=== PATIENT | female | born 1945 | race Caucasian/White ===

== ENCOUNTER → 2017-08-07 | Outpatient (CLI) | payer MEDICARE | LOC: M WUC 14:32 | DX: R91.8 Other nonspecific abnormal finding of lung field (principal); R05 Cough | CPT/HCPCS: 71046 ==

== ENCOUNTER → 2018-02-19 | Outpatient (REF) | payer MEDICARE | LOC: M LAB REF 13:18 | DX: K52.9 Noninfective gastroenteritis and colitis, unspecified (principal) | CPT/HCPCS: 87507 ==

== ENCOUNTER 2018-03-14 07:40 | Day surgery (SDC) | payer OTHER ==
[2018-03-14] MEDS: NS 1,000 ML IV (07:55)
[2018-03-14] MEDS ORDERED: LIDOCAINE 2% INJ 100 MG/5 ML SDV (FOR ANES.) As Ordered (09:48)
[2018-03-14] MEDS ORDERED: PROPOFOL 200 MG/20 ML VIAL As Ordered ×2 (09:48)
== END 2018-03-14 09:31 | disposition home or self-care (01) ==
LOC: M OPP 07:40
DX: K52.9 Noninfective gastroenteritis and colitis, unspecified (principal); A04.71 Enterocolitis due to Clostridium difficile, recurrent; D12.2 Benign neoplasm of ascending colon; K64.0 First degree hemorrhoids; K57.30 Diverticulosis of large intestine without perforation or abscess without bleeding; I10 Essential (primary) hypertension; E78.5 Hyperlipidemia, unspecified; E11.9 Type 2 diabetes mellitus without complications; M19.90 Unspecified osteoarthritis, unspecified site; J44.9 Chronic obstructive pulmonary disease, unspecified; Z87.891 Personal history of nicotine dependence; Z79.82 Long term (current) use of aspirin; Z79.899 Other long term (current) drug therapy; Z79.84 Long term (current) use of oral hypoglycemic drugs
CPT/HCPCS: 45385

== ENCOUNTER 2018-07-13 09:04 | Inpatient (IN) | payer OTHER ==
[2018-07-13 09:44] LABS: BASO % 0.7 % (0.0-1.0); EOS # 0.5 10^3/uL (0.0-0.50); EOS % 11.1 % (0.0-3.0); HEMOGLOBIN 13.2 g/dl (12.0-15.5); IMMATURE GRANULOCYTE % 0.5 % (0-3.0); LYMPH # 1.4 10^3/uL (1.5-4.5); LYMPH % 30.5 % (24.0-44.0); MEAN CORPUSCULAR HGB CONC 32.2 g/dl (32.0-36.5); MEAN CORPUSCULAR VOLUME 83.8 fl (80.0-96.0); MONO # 0.6 10^3/uL (0.0-0.8); MONO % 13.3 % (0.0-5.0); NEUTROPHILS % 43.9 % (36.0-66.0); PLATELET COUNT, AUTOMATED 268 10^3/uL (150-450); RED BLOOD COUNT 4.89 10^6/uL (4.00-5.40); RED CELL DISTRIBUTION WIDTH 13.6 % (11.5-14.5); WHITE BLOOD COUNT 4.4 10^3/uL (4.0-10.0)
[2018-07-13 09:55] LABS: INR 0.99; PROTHROMBIN TIME 13.2 SECONDS (12.1-14.4)
[2018-07-13 10:38] LABS: ALBUMIN 3.1 GM/DL (3.2-5.2); ALBUMIN/GLOBULIN RATIO 0.76 (1.00-1.93); ALKALINE PHOSPHATASE 68 U/L (45-117); ALT/SGPT 22 U/L (12-78); ANION GAP 9 MEQ/L (8-16); AST/SGOT 27 U/L (7-37); BILIRUBIN,DIRECT 0.2 MG/DL (0.0-0.2); BILIRUBIN,TOTAL 0.7 MG/DL (0.2-1.0); BLOOD UREA NITROGEN 10 MG/DL (7-18); CALCIUM LEVEL 8.6 MG/DL (8.8-10.2); CARBON DIOXIDE LEVEL 24 MEQ/L (21-32); CHLORIDE LEVEL 105 MEQ/L (98-107); CK-MB VALUE MASS < 1.0 NG/ML (<3.6); CPK CREATINE PHOSPHOKINASE 39 U/L (26-192); CREATININE FOR GFR 0.55 MG/DL (0.55-1.30); GLOMERULAR FILTRATION RATE > 60.0 (>39); GLUCOSE, FASTING 129 MG/DL (70-100); LIPASE 87 U/L (73-393); MB/CK RELATIVE INDEX 2.56 (< OR =4); NT-PRO BNP 56 PG/ML (<125); POTASSIUM SERUM 3.7 MEQ/L (3.5-5.1); SODIUM LEVEL 138 MEQ/L (136-145); THYROID STIMULATING HORMONE 0.779 uIU/ML (0.358-3.740); TOTAL PROTEIN 7.2 GM/DL (6.4-8.2); TROPONIN I < 0.02 NG/ML (< 0.10)
[2018-07-13] MEDS ORDERED: ISOVUE-370 76% 100ML VIAL (Q9967) As Ordered (11:00)
[2018-07-13 12:27] LABS: LACTIC ACID SEPSIS PROTOCOL 1.2 MMOL/L (0.4-2.0)
[2018-07-13] MEDS ORDERED: ONDANSETRON 4MG/2ML VIAL (J2405) IV (13:00)
[2018-07-13] MEDS: predniSONE 20 MG TAB PO (16:09)
[2018-07-13] MEDS: GABAPENTIN 300 MG CAP PO ×2 (16:09→20:01)
[2018-07-13] MEDS: IPRATROPIUM 0.5MG/ALBUTEROL 2.5MG INH SOL UD 3ML (DUONEB)(J7620) NEB (16:52)
[2018-07-13 19:37] LABS: BEDSIDE GLUCOSE 256 MG/DL (83-110)
[2018-07-13] MEDS ORDERED: GLUCOSE 4 GM CHEW TABLET PO (20:00)
[2018-07-13] MEDS ORDERED: DEXTROSE 50% 50 ML SYRINGE IV (20:00)
[2018-07-13] MEDS: ENOXAPARIN 40 MG/0.4 ML SYRINGE (J1650) SC (20:00)
[2018-07-13] MEDS ORDERED: GLUCAGON FOR INJ 1 MG VIAL (J1610) SC (20:00)
[2018-07-13] MEDS: HumaLOG INSULIN (NovoLOG) PER UNIT SC (20:01)
[2018-07-13] MEDS: FENOFIBRATE 145 MG TAB (TRICOR) PO (20:01)
[2018-07-14 05:57] LABS: BASO % 0.4 % (0.0-1.0); EOS # 0.1 10^3/uL (0.0-0.50); EOS % 2.4 % (0.0-3.0); HEMATOCRIT 40.4 % (36.0-47.0); HEMOGLOBIN 12.7 g/dl (12.0-15.5); IMMATURE GRANULOCYTE % 0.4 % (0-3.0); LYMPH # 1.3 10^3/uL (1.5-4.5); LYMPH % 28.4 % (24.0-44.0); MEAN CORPUSCULAR HGB CONC 31.4 g/dl (32.0-36.5); MEAN CORPUSCULAR VOLUME 85.8 fl (80.0-96.0); MONO # 0.8 10^3/uL (0.0-0.8); MONO % 16.4 % (0.0-5.0); NEUTROPHILS # 2.4 10^3/uL (1.8-7.7); PLATELET COUNT, AUTOMATED 269 10^3/uL (150-450); RED BLOOD COUNT 4.71 10^6/uL (4.00-5.40); RED CELL DISTRIBUTION WIDTH 13.6 % (11.5-14.5); WHITE BLOOD COUNT 4.6 10^3/uL (4.0-10.0)
[2018-07-14 06:18] LABS: BLOOD UREA NITROGEN 16 MG/DL (7-18); CARBON DIOXIDE LEVEL 27 MEQ/L (21-32); CHLORIDE LEVEL 106 MEQ/L (98-107); CREATININE FOR GFR 0.58 MG/DL (0.55-1.30); GLOMERULAR FILTRATION RATE > 60.0 (>39); GLUCOSE, FASTING 136 MG/DL (70-100); POTASSIUM SERUM 4.5 MEQ/L (3.5-5.1); SODIUM LEVEL 139 MEQ/L (136-145)
[2018-07-14 06:19] LABS: ANION GAP 6 MEQ/L (8-16); CALCIUM LEVEL 8.9 MG/DL (8.8-10.2)
[2018-07-14] MEDS: HumaLOG INSULIN (NovoLOG) PER UNIT SC ×4 (07:30→20:24)
[2018-07-14] MEDS: predniSONE 20 MG TAB PO (09:38)
[2018-07-14] MEDS: GABAPENTIN 300 MG CAP PO ×3 (09:38→20:24)
[2018-07-14] MEDS: PRAVASTATIN 20 MG TAB PO (09:38)
[2018-07-14] MEDS: LOSARTAN 25 MG TAB PO (09:40)
[2018-07-14] MEDS: FUROSEMIDE 20 MG/2 ML VIAL (J1940) IV (10:00)
[2018-07-14] MEDS: IPRATROPIUM 0.5MG/ALBUTEROL 2.5MG INH SOL UD 3ML (DUONEB)(J7620) NEB (10:01)
[2018-07-14 11:54] LABS: BEDSIDE GLUCOSE 195 MG/DL (83-110)
[2018-07-14] MEDS: ACETAMINOPHEN TAB 650MG DOSE (2X325MG) PO (13:16)
[2018-07-14 17:04] LABS: BEDSIDE GLUCOSE 200 MG/DL (83-110)
[2018-07-14 20:17] LABS: BEDSIDE GLUCOSE 225 MG/DL (83-110)
[2018-07-14] MEDS: ENOXAPARIN 40 MG/0.4 ML SYRINGE (J1650) SC (20:24)
[2018-07-14] MEDS: FENOFIBRATE 145 MG TAB (TRICOR) PO (20:24)
[2018-07-15 07:27] LABS: BEDSIDE GLUCOSE 121 MG/DL (83-110)
[2018-07-15] MEDS ORDERED: metFORMIN XR 500MG TAB *GLUCOPHAGE XR PO (08:00)
[2018-07-15] MEDS: PRAVASTATIN 20 MG TAB PO (08:05)
[2018-07-15] MEDS: GABAPENTIN 300 MG CAP PO ×3 (08:05→20:31)
[2018-07-15] MEDS: HumaLOG INSULIN (NovoLOG) PER UNIT SC ×4 (08:05→20:31)
[2018-07-15] MEDS: predniSONE 20 MG TAB PO ×2 (08:05→15:59)
[2018-07-15] MEDS: FUROSEMIDE 20 MG TAB PO (08:05)
[2018-07-15] MEDS: LOSARTAN 25 MG TAB PO (08:09)
[2018-07-15 09:26] LABS: HEMATOCRIT 42.4 % (36.0-47.0); HEMOGLOBIN 13.2 g/dl (12.0-15.5); MEAN CORPUSCULAR HEMOGLOBIN 26.3 pg (27.0-33.0); MEAN CORPUSCULAR HGB CONC 31.1 g/dl (32.0-36.5); MEAN CORPUSCULAR VOLUME 84.6 fl (80.0-96.0); PLATELET COUNT, AUTOMATED 288 10^3/uL (150-450); RED BLOOD COUNT 5.01 10^6/uL (4.00-5.40); RED CELL DISTRIBUTION WIDTH 13.8 % (11.5-14.5)
[2018-07-15 09:36] LABS: ANION GAP 8 MEQ/L (8-16); BLOOD UREA NITROGEN 25 MG/DL (7-18); CALCIUM LEVEL 9.1 MG/DL (8.8-10.2); CARBON DIOXIDE LEVEL 27 MEQ/L (21-32); CHLORIDE LEVEL 105 MEQ/L (98-107); CREATININE FOR GFR 0.53 MG/DL (0.55-1.30); GLOMERULAR FILTRATION RATE > 60.0 (>39); GLUCOSE, FASTING 120 MG/DL (70-100); NT-PRO BNP 46 PG/ML (<125); POTASSIUM SERUM 3.8 MEQ/L (3.5-5.1); SODIUM LEVEL 140 MEQ/L (136-145)
[2018-07-15 10:42] LABS: CK-MB VALUE MASS < 1.0 NG/ML (<3.6); CPK CREATINE PHOSPHOKINASE 27 U/L (26-192); TROPONIN I < 0.02 NG/ML (< 0.10)
[2018-07-15 12:25] LABS: IMMUNOGLOBULIN E < 3.6 IU/ML (<100)
[2018-07-15 13:16] LABS: BASO % 0.4 % (0.0-1.0); EOS # 0.1 10^3/uL (0.0-0.50); EOS % 1.3 % (0.0-3.0); HEMATOCRIT 42.9 % (36.0-47.0); HEMOGLOBIN 13.5 g/dl (12.0-15.5); IMMATURE GRANULOCYTE % 0.4 % (0-3.0); LYMPH # 0.9 10^3/uL (1.5-4.5); LYMPH % 16.7 % (24.0-44.0); MEAN CORPUSCULAR HEMOGLOBIN 26.7 pg (27.0-33.0); MEAN CORPUSCULAR HGB CONC 31.5 g/dl (32.0-36.5); MONO # 0.3 10^3/uL (0.0-0.8); MONO % 5.4 % (0.0-5.0); NEUTROPHILS % 75.8 % (36.0-66.0); PLATELET COUNT, AUTOMATED 297 10^3/uL (150-450); RED BLOOD COUNT 5.05 10^6/uL (4.00-5.40); RED CELL DISTRIBUTION WIDTH 13.6 % (11.5-14.5); WHITE BLOOD COUNT 5.2 10^3/uL (4.0-10.0)
[2018-07-15 13:36] LABS: ERYTHROCYTE SEDIMENTATION RATE 30 mm/hr (0-30)
[2018-07-15 13:38] LABS: C REACTIVE PROTEIN QUANTITATIV 2.24 MG/DL (0.00-0.30)
[2018-07-15] MEDS: ACETAMINOPHEN TAB 650MG DOSE (2X325MG) PO (15:59)
[2018-07-15 17:49] LABS: BEDSIDE GLUCOSE 217 MG/DL (83-110)
[2018-07-15 20:08] LABS: BEDSIDE GLUCOSE 255 MG/DL (83-110)
[2018-07-15] MEDS: FENOFIBRATE 145 MG TAB (TRICOR) PO (20:31)
[2018-07-15] MEDS: ENOXAPARIN 40 MG/0.4 ML SYRINGE (J1650) SC (20:31)
[2018-07-15] MEDS: IPRATROPIUM 0.5MG/ALBUTEROL 2.5MG INH SOL UD 3ML (DUONEB)(J7620) NEB (20:36)
[2018-07-16 06:40] LABS: HEMATOCRIT 40.5 % (36.0-47.0); HEMOGLOBIN 12.8 g/dl (12.0-15.5); MEAN CORPUSCULAR HEMOGLOBIN 26.6 pg (27.0-33.0); MEAN CORPUSCULAR HGB CONC 31.6 g/dl (32.0-36.5); PLATELET COUNT, AUTOMATED 313 10^3/uL (150-450); RED BLOOD COUNT 4.82 10^6/uL (4.00-5.40); RED CELL DISTRIBUTION WIDTH 13.5 % (11.5-14.5); WHITE BLOOD COUNT 5.4 10^3/uL (4.0-10.0)
[2018-07-16 06:54] LABS: ANION GAP 8 MEQ/L (8-16); BLOOD UREA NITROGEN 23 MG/DL (7-18); CALCIUM LEVEL 8.7 MG/DL (8.8-10.2); CARBON DIOXIDE LEVEL 27 MEQ/L (21-32); CHLORIDE LEVEL 107 MEQ/L (98-107); CREATININE FOR GFR 0.52 MG/DL (0.55-1.30); GLOMERULAR FILTRATION RATE > 60.0 (>39); GLUCOSE, FASTING 137 MG/DL (70-100); POTASSIUM SERUM 3.6 MEQ/L (3.5-5.1); SODIUM LEVEL 142 MEQ/L (136-145)
[2018-07-16] MEDS: ACETAMINOPHEN TAB 650MG DOSE (2X325MG) PO (07:50)
[2018-07-16] MEDS: PRAVASTATIN 20 MG TAB PO (07:50)
[2018-07-16] MEDS: LOSARTAN 25 MG TAB PO (07:52)
[2018-07-16] MEDS: GABAPENTIN 300 MG CAP PO (07:52)
[2018-07-16] MEDS: predniSONE 10 MG TAB PO (07:52)
[2018-07-16] MEDS: HumaLOG INSULIN (NovoLOG) PER UNIT SC ×2 (07:53→13:18)
[2018-07-19 14:00] LABS: BEDSIDE GLUCOSE 179 MG/DL (83-110)
[2018-07-19 14:00] LABS: BEDSIDE GLUCOSE 154 MG/DL (83-110)
== END 2018-07-16 13:56 | disposition home or self-care (01) | DRG 197 ==
LOC: M ED 09:04 → M ED INP 12:59 → M MSPAV 14:39
DX: J67.9 Hypersensitivity pneumonitis due to unspecified organic dust (principal); J44.1 Chronic obstructive pulmonary disease with (acute) exacerbation; E78.5 Hyperlipidemia, unspecified; E11.9 Type 2 diabetes mellitus without complications; I10 Essential (primary) hypertension; Z79.899 Other long term (current) drug therapy; Z79.82 Long term (current) use of aspirin; Z87.891 Personal history of nicotine dependence

== ENCOUNTER → 2018-08-17 | Outpatient (REF) | payer OTHER ==
[~2018-08-17] MED LIST: ASPI1CHW2 PO; BELS1TAB2 PO; BENT10CA PO; CALCTAB7 PO; CENT1CHW5 PO; FENO145T13 PO; FISH7.5C PO; GABA-843 PO; INVO100T PO; LECIGRA PO; LOSA25TA14 PO; METF500T4 PO; PRAV40TA2 PO; PRED10TA2 PO; REST0.057 OU; SERT-155 PO; SLOWTAB2 PO; SULF500T2 PO; VANC1CAP6 PO; VITA500T3 PO
[2018-08-22 00:11] LABS: ANCA-ATYPICAL <1:20 titer (Neg:<1:20); ANTI DOUBLE STRAND-DNA AB 1 IU/mL (0-9); ANTINUCLEAR ANTIBODIES DIRECT Negative (Negative); CYTOPLASMIC NEUTROP AB ANCA-C <1:20 titer (Neg:<1:20); PERINUCLEAR AB ANCA-P <1:20 titer (Neg:<1:20); RNP ANTIBODIES <0.2 AI (0.0-0.9); SJOGREN'S ANTI SS-A <0.2 AI (0.0-0.9); SJOGREN'S ANTI SS-B <0.2 AI (0.0-0.9); SMITH ANTIBODIES <0.2 AI (0.0-0.9)
== END ==
LOC: M LAB REF 16:23
PROVIDERS: ATTEND Internal Medicine Pulmonary Disease
DX: R91.8 Other nonspecific abnormal finding of lung field (principal)

== ENCOUNTER → 2018-09-14 | Outpatient (CLI) | payer MEDICARE ==
--- NOTE | 2018-09-14 15:53 | REP ---
CT of the chest without IV contrast: Comparison is the chest CT dated 07/13/2018. The bilateral infiltrates identified on the previous study have resolved. There are no infiltrates or pleural effusions on the current study. There are no nodules or masses. There is no mediastinal or axillary lymph node enlargement. The study is insensitive for hilar lymph node enlargement in the absence of IV contrast. There is occasional coronary artery atheromatous calcification. Thoracic aorta is unremarkable. Cardiac size is normal. In the upper abdomen there is a cortical defect in the upper pole right kidney compatible with focal renal cortical infarct as previously. The visualized upper abdominal contents are otherwise unremarkable. Impression: Essentially negative CT study of the chest. The bilateral infiltrates identified on the comparison study have resolved. 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 Electronically Signed by Darrell Montesinos MD 09/14/2018 03:44 P
== END ==
LOC: M RAD 10:17
PROVIDERS: ATTEND Internal Medicine Pulmonary Disease
DX: R91.1 Solitary pulmonary nodule (principal)

== ENCOUNTER 2019-01-02 10:07 | Emergency (ER) | payer MEDICARE ==
[~2019-01-02] VITALS: Ht 170.2 cm; Wt 86.8 kg
[2019-01-02] MEDS ORDERED: VENTAER INH (10:14)
[2019-01-02] MEDS ORDERED: BREO1INH INH (10:14)
[2019-01-02] MEDS ORDERED: JARD1TAB3 PO (10:14)
--- NOTE | 2019-01-02 10:37 | REP ---
CT Head without contrast HISTORY: Infarction COMPARISON: 03/21/2015 Areas of decreased attenuation are present in the periventricular white matter. This represents small-vessel ischemic disease. There is no intraparenchymal hemorrhage, acute infarct, mass or midline shift. The ventricular system and cortical sulci are dilated consistent with minimal volume loss. There is no extra cerebral collection. There is no fracture. The visualized sinuses are clear. IMPRESSION: 1. Small-vessel ischemic disease. 2. Minimal volume loss. Electronically Signed by Maximo Keene MD 01/02/2019 10:28 A
--- NOTE | 2019-01-02 10:59 | REP ---
PORTABLE CHEST: AP portable view of the chest is performed and compared to prior studies most recently 07/13/2018. There is mild bibasilar fibroatelectatic change without evidence of acute infiltrate. The heart is normal in size. There is mild calcification of the thoracic aorta. Mediastinal silhouette is unchanged. IMPRESSION: Mild bibasilar fibroatelectatic change. Electronically Signed by Darrell Garcia MD 01/02/2019 04:50 P
[2019-01-02 11:15] LABS: BASO % 0.4 % (0.0-1.0); EOS # 0.1 10^3/uL (0.0-0.50); EOS % 2.1 % (0.0-3.0); HEMATOCRIT 42.4 % (36.0-47.0); HEMOGLOBIN 13.6 g/dl (12.0-15.5); LYMPH # 1.7 10^3/uL (1.5-4.5); LYMPH % 24.9 % (24.0-44.0); MEAN CORPUSCULAR HEMOGLOBIN 28.3 pg (27.0-33.0); MEAN CORPUSCULAR HGB CONC 32.1 g/dl (32.0-36.5); MEAN CORPUSCULAR VOLUME 88.3 fl (80.0-96.0); MONO # 0.6 10^3/uL (0.0-0.8); MONO % 8.2 % (0.0-5.0); NEUTROPHILS # 4.3 10^3/uL (1.8-7.7); NEUTROPHILS % 63.7 % (36.0-66.0); PLATELET COUNT, AUTOMATED 229 10^3/uL (150-450); WHITE BLOOD COUNT 6.7 10^3/uL (4.0-10.0)
[2019-01-02 11:25] LABS: INR 0.91; PROTHROMBIN TIME 12.3 SECONDS (12.1-14.4)
[2019-01-02 11:26] LABS: PARTIAL THROMBOPLASTIN TIME 26.1 SECONDS (25.4-37.6)
[2019-01-02 11:43] LABS: BLOOD UREA NITROGEN 15 MG/DL (7-18); CALCIUM LEVEL 9.1 MG/DL (8.8-10.2); CARBON DIOXIDE LEVEL 26 MEQ/L (21-32); CHLORIDE LEVEL 109 MEQ/L (98-107); CK-MB VALUE MASS < 1.0 NG/ML (<3.6); CPK CREATINE PHOSPHOKINASE 42 U/L (26-192); CREATININE FOR GFR 0.61 MG/DL (0.55-1.30); GLOMERULAR FILTRATION RATE > 60.0 (>39); GLUCOSE, FASTING 114 MG/DL (70-100); MB/CK RELATIVE INDEX 2.38 (< OR =4); POTASSIUM SERUM 3.7 MEQ/L (3.5-5.1); SODIUM LEVEL 143 MEQ/L (136-145); TROPONIN I < 0.02 NG/ML (< 0.10)
[2019-01-02] MEDS ORDERED: MECLIZINE 25 MG TABLET PO ONE (12:00)
[2019-01-02] MEDS ORDERED: OMEP-218 (14:52)
[2019-01-02] MEDS ORDERED: LOSARTAN 25 MG TAB PO ONE (15:15)
[2019-01-02 15:33] VITALS: BP 184/87
--- NOTE | 2019-01-02 16:21 | ECGEPIP ---
[facility] - ED Test Date: 2019-01-02 Pat Name: PADMINI WALKER Department: Room: - Gender: Female Wet [employer] Supervisor: ernie : 1945 Requested By: Oanh Syed Order Number: [id number] Reading MD: Oanh Syed Measurements Intervals [place] Rate: 56 P: 51 OK: 169 QRS: QRSD: 85 T: 23 QT: 433 QTc: 420 Interpretive Statements SINUS BRADYCARDIA SIMILAR 07/15/18 Electronically Signed on 01-02-2019 16:21:36 EDT by Oanh Syed
[2019-01-02] MEDS ORDERED: MECL-68 PO (17:49)
--- NOTE | 2019-01-02 19:17 | REP ---
MRA Brain without contrast History: Vertigo 3-D [id number] MR angiography was performed at the level of the [place]. There is no aneurysm or arteriovenous malformation. Mild atherosclerotic disease involves the cavernous internal carotid arteries and right middle cerebral artery trifurcation. Major intracranial vessels are patent. The right vertebral artery is dominant. Impression 1. There is no aneurysm or arteriovenous malformation 2. Atherosclerotic disease as described above. Electronically Signed by Maximo Keene MD 01/02/2019 07:08 P
--- NOTE | 2019-01-02 19:20 | REP ---
MR Brain without contrast HISTORY: Vertigo COMPARISON : None Scattered punctate areas of increased signal intensity on T2-weighted images are present in the periventricular and subcortical white matter. This represents small-vessel ischemic disease. There is no intraparenchymal hemorrhage, infarct, mass or midline shift. The ventricular system and cortical sulci are dilated consistent with minimal volume loss. There is no extra cerebral collection. The sinuses are clear. IMPRESSION: 1. Minimal small vessel ischemic disease. 2. Minimal volume loss. Electronically Signed by Maximo Keene MD 01/02/2019 07:11 P
[2019-01-02 19:45] VITALS: BP 136/59
== END 2019-01-02 20:18 | disposition home or self-care (01) ==
LOC: M ED 10:07
DX: R42 Dizziness and giddiness (principal); R00.1 Bradycardia, unspecified; E11.9 Type 2 diabetes mellitus without complications; G62.9 Polyneuropathy, unspecified; I10 Essential (primary) hypertension; E78.5 Hyperlipidemia, unspecified; Z87.891 Personal history of nicotine dependence; I67.2 Cerebral atherosclerosis; J98.11 Atelectasis; I67.82 Cerebral ischemia; Z79.82 Long term (current) use of aspirin; Z79.84 Long term (current) use of oral hypoglycemic drugs; Z79.899 Other long term (current) drug therapy

== ENCOUNTER 2019-02-18 09:55 | Emergency (ER) | payer MEDICARE ==
[~2019-02-18] VITALS: Ht 170.2 cm; Wt 84.5 kg
[~2019-02-18 09:55] MED LIST changes: +BREO1INH INH; +CYAN500T8 PO; +JARD1TAB3 PO; +MECL-68 PO; +OMEP-218; +VENTAER INH; -VITA500T3 PO
--- NOTE | 2019-02-18 11:00 | REP ---
Clinical: Pain. Fall. Technique: AP, lateral views of the left tibia / fibula. Findings: There is a nondisplaced poorly defined fracture involving the ankle and likely involving the posterior malleolus or distal fibula with surrounding soft tissue swelling. There also appears to be an acute oblique fracture involving the proximal fibular shaft. Impression: Incompletely evaluated ankle fracture with soft tissue swelling Oblique fracture of the proximal fibular shaft. Electronically Signed by Jacob Licea MD 02/18/2019 10:51 A
--- NOTE | 2019-02-18 11:02 | REP ---
Clinical: Trauma. Fall. Technique: AP, lateral, bilateral oblique views of the left ankle. Findings: There appears to be fracture of the posterior malleolus and tip of the medial malleolus. A subtle injury to the distal fibula cannot be excluded as well. Generalized soft tissue swelling noted. Impression: Acute fractures of the posterior malleolus and tip of the medial malleolus with surrounding soft tissue swelling. Electronically Signed by Jacob Licea MD 02/18/2019 10:53 A
[2019-02-18] MEDS ORDERED: ADACEL/BOOSTRIX VACCINE (DIPHTH/PERTUSS/ACELL/TETANUS)0.5ML SYR (90715) IM ONE (11:30)
[2019-02-18 13:25] VITALS: BP 148/87
== END 2019-02-18 13:27 | disposition home or self-care (01) ==
LOC: M ED 09:55 → EDBD 09:55 → M ED 13:27
DX: S82.432A Displaced oblique fracture of shaft of left fibula, initial encounter for closed fracture (principal); S82.52XA Displaced fracture of medial malleolus of left tibia, initial encounter for closed fracture; S90.512A Abrasion, left ankle, initial encounter; W01.0XXA Fall on same level from slipping, tripping and stumbling without subsequent striking against object, initial encounter; Y92.830 Public park as the place of occurrence of the external cause; I11.0 Hypertensive heart disease with heart failure; E11.40 Type 2 diabetes mellitus with diabetic neuropathy, unspecified; I50.9 Heart failure, unspecified; J44.9 Chronic obstructive pulmonary disease, unspecified; F33.9 Major depressive disorder, recurrent, unspecified; K21.9 Gastro-esophageal reflux disease without esophagitis; F41.9 Anxiety disorder, unspecified; M19.90 Unspecified osteoarthritis, unspecified site; Z79.899 Other long term (current) drug therapy; Z79.84 Long term (current) use of oral hypoglycemic drugs; Z79.82 Long term (current) use of aspirin; Z87.891 Personal history of nicotine dependence

== ENCOUNTER → 2019-02-27 | Outpatient (CLI) | payer MEDICARE ==
[~2019-02-27] MED LIST changes: +ASPI81TA85 PO; -FENO145T13 PO; +FENO145T7 PO; +KEFL500C17 PO; -MECL-68 PO; +MECL1TAB31 PO; +METF-791 PO; -METF500T4 PO; +OXYC-517 PO; -SERT-155 PO; +SERT50TA29 PO
--- NOTE | 2019-02-27 17:07 | REP ---
CT LEFT ANKLE: CT left ankle was performed in the axial plane. Sagittal and coronal reconstruction images are performed. There is a somewhat comminuted fracture of the distal end of the tibia. This extends into the tibiotalar joint. This predominately involves the posterior malleolus. Two major fracture fragments at that location are not significantly displaced. There is a thin linear fracture fragment at the medial margin of the tibia at that level which is slightly displaced medially. There is a fragment displaced laterally at the lateral margin of the distal tibia, located anterior to the distal fibula. The distal fibula itself is intact. There is mild extension into the medial malleolus. Approximately three small rounded ossific densities at the tip of the medial malleolus appear to represent old avulsion fractures. The talus and calcaneus appear intact. Two tiny accessory ossicles are seen posterior to the navicular bone. Small accessory ossicle is seen adjacent to the cuboid bone. Superficial soft-tissue edema is noted. Electronically Signed by Darrell Garcia MD 02/28/2019 07:53 A
== END ==
LOC: M RAD 13:11
PROVIDERS: ATTEND Orthopaedic Surgery
DX: S82.392A Other fracture of lower end of left tibia, initial encounter for closed fracture (principal)

== ENCOUNTER 2019-03-04 09:52 | Day surgery (SDC) | payer MEDICARE ==
[2019-03-04] VITALS (7 sets, daily range): BP systolic 99–147; BP diastolic 60–93; O2SAT 96
[~2019-03-04] VITALS: Ht 171.4 cm; Wt 78.2 kg
[~2019-03-04 09:52] MED LIST changes: -ASPI81TA85 PO; +FENO145T13 PO; -FENO145T7 PO; -KEFL500C17 PO; +MECL-68 PO; -MECL1TAB31 PO; -METF-791 PO; +METF500T4 PO; -OXYC-517 PO; +SERT-155 PO; -SERT50TA29 PO
[2019-03-04] MEDS ORDERED: dexameTHASONE 4 MG/ML 1ML VIAL (J1100) As Ordered ONE (10:24)
[2019-03-04] MEDS ORDERED: KETOROLAC 60 MG/2 ML VIAL (J1885) As Ordered ONE (10:24)
[2019-03-04] MEDS ORDERED: ONDANSETRON 4MG/2ML VIAL (J2405) As Ordered ONE (10:24)
[2019-03-04] MEDS ORDERED: PROPOFOL 200 MG/20 ML VIAL As Ordered ONE (10:26)
[2019-03-04] MEDS ORDERED: LIDOCAINE 2% INJ 100 MG/5 ML SDV (FOR ANES.) As Ordered ONE (10:26)
[2019-03-04] MEDS ORDERED: fentaNYL 250 MCG/5 ML INJECTION (J3010) As Ordered ONE (10:29)
[2019-03-04] MEDS ORDERED: MIDAZOLAM INJ 2 MG/2 ML VIAL (J2250) As Ordered ONE ×2 (10:30→12:08)
[2019-03-04] MEDS ORDERED: LR 1,000 ML IV ONE (11:00)
[2019-03-04] MEDS ORDERED: ROCURONIUM BROMIDE 50 MG/5 ML VIAL As Ordered ONE ×2 (11:34→13:37)
[2019-03-04] MEDS ORDERED: fentaNYL 100 MCG/2 ML INJECTION (J3010) As Ordered ONE (12:08)
[2019-03-04] MEDS: MIDAZOLAM INJ 2 MG/2 ML VIAL (J2250) IV SCH ×2 (12:28→12:40)
[2019-03-04] MEDS: fentaNYL 100 MCG/2 ML INJECTION (J3010) IV SCH ×2 (12:28→12:40)
[2019-03-04] MEDS ORDERED: BUPIVACAINE HCL 0.5% 30 ML VIAL As Ordered ONE (13:03)
[2019-03-04] MEDS ORDERED: ePHEDrine SULFATE 25 MG/5 ML(5MG/ML) SYRINGE As Ordered ONE (13:36)
[2019-03-04] MEDS ORDERED: SUGAMMADEX SODIUM 500 MG/5 ML VIAL (BRIDION) As Ordered ONE (13:56)
[2019-03-04] MEDS: ACETAMINOPHEN 500 MG TAB PO SCH ×2 (14:00→21:56)
[2019-03-04] MEDS ORDERED: METOCLOPRAMIDE INJ 10MG/2ML VIAL (J2765) IV PRN (16:30)
[2019-03-04] MEDS ORDERED: ONDANSETRON 4MG/2ML VIAL (J2405) IV PRN (16:30)
[2019-03-04] MEDS ORDERED: LR 1,000 ML IV SCH ×2 (16:30)
[2019-03-04] MEDS: PERCOCET 5MG/325MG TAB PO PRN ×2 (16:32→17:00)
[2019-03-04] MEDS: fentaNYL 100 MCG/2 ML INJECTION (J3010) IV PRN ×4 (16:36→16:55)
--- NOTE | 2019-03-04 16:53 | REP ---
Left ankle series: Intraoperative films: 13 views. History: Fracture left ankle. 2 minutes 31 seconds of fluoroscopy time is reported. Findings: A sequence of 13 last image hold fluoroscopically obtained spot radiographs of the left ankle document open reduction internal fixation procedure or left distal tibial fracture. Electronically Signed by Fernando Mitchell MD 03/04/2019 04:42 P
[2019-03-04] MEDS: traMADol 50 MG TAB PO PRN (20:45)
[2019-03-05 02:00] VITALS: BP 143/82
[2019-03-05] MEDS: traMADol 50 MG TAB PO PRN ×2 (02:31→08:44)
[2019-03-05] MEDS: ACETAMINOPHEN 500 MG TAB PO SCH ×2 (05:06→13:10)
[2019-03-05 06:00] VITALS: BP 141/80
[2019-03-05] MEDS ORDERED: ASPI81TA85 PO (06:14)
[2019-03-05] MEDS ORDERED: KEFL500C17 PO (06:14)
[2019-03-05] MEDS ORDERED: OXYC-517 PO (06:14)
--- NOTE | 2019-03-05 08:05 | REP ---
Portable left ankle series: Three views: History: Postop. Comparison study: February 18, 2019. Three the views obtained portably through overlying cast material document screw plate fixation of the posterior aspect of the distal tibia anatomically aligned. Ankle mortise appears intact. Electronically Signed by Fernando Mitchell MD 03/05/2019 07:20 P
[2019-03-05] MEDS: CEPHALEXIN 500 MG CAP PO SCH ×2 (08:44→13:10)
[2019-03-05] MEDS ORDERED: ASPIRIN 81 MG ENTERIC TAB PO SCH (09:00)
[2019-03-05 10:00] VITALS: BP 142/79
--- NOTE | 2019-03-05 17:23 | RO ---
DATE OF PROCEDURE: 03/04/2019 PREPROCEDURE DIAGNOSIS: Left posterior malleolar fracture. POSTPROCEDURE DIAGNOSIS: Left posterior malleolar fracture. PROCEDURE: Open reduction internal fixation left posterior malleolus. SURGEON: Lindsey Mccall MD CREATIVE ART DIRECTOR: MILDRED Hedrick ANESTHESIA: General endotracheal. ESTIMATED BLOOD LOSS: 25 mL. COMPLICATIONS: None. IMPLANTS: Synthes four-hole one-third tubular plate and associated 3.5 mm screws. One single 3.5 mm screw outside the plate. COMPLICATIONS: None. CONDITION: Stable to recovery. INDICATIONS: Diana Albarran is a 73-year-old female who sustained a large posterior malleolar fracture. Risks and benefits of surgery were discussed with the patient in detail, and she elected for surgical intervention. Risks include but are not limited to infection, damage to nerves and blood vessels, continued pain and stiffness, need for additional procedures. Informed consent was obtained in the office. DESCRIPTION OF PROCEDURE: The patient was met in the preoperative holding area where the left lower extremity was marked as the correct operative site. Anesthesia did attempt a nerve block; however, the patient did have a small sore from her cast over the posterior aspect of her knee, and they were unable to do the block. She was taken to the operating room where general anesthesia was performed. The patient was placed in the prone position. All bony prominences were well padded. A well-padded tourniquet was placed on the left upper thigh. The left lower extremity was then prepped and draped in the normal sterile fashion after chlorhexidine pre-wash was done. Following this, an official time-out was held with the correct patient, operative site, and operative procedure were verified. At this point, the leg was exsanguinated and tourniquet was inflated to 250 mmHg. It was up for 113 minutes. Posterolateral approach to the ankle was utilized. Incision was made midway between the fibula and Achilles. The sural nerve was immediately available, and this was carefully retracted medially throughout the entirety of the case. The interval between the peroneal tendons and Achilles was accessed. Following this, the flexor hallucis longus (FHL) was gently retracted off the posterior aspect of the posterior malleolus. The fracture was identified. It was cleaned of hematoma and debris. It was then reduced using a ball spike. It was held in place with two 0.062 K-wires. A 3.5 mm lag screw was placed across the fracture site. C-arm was used and radiographs were confirmed on AP, lateral and mortise views, satisfactory alignment. Following this, a four-hole plate was selected. It was secured in an antiglide-like fashion. Final x-rays were performed and alignment and hardware was found to be satisfactory. There was good compression of the fracture site. Again, this was satisfactory on all AP, lateral and mortise views. The patient was placed into a well-padded splint. She was then extubated and transferred to the recovery room in stable condition. PLAN: The patient will be non-weightbearing for 6 weeks. I would like her to come back in 1 week for a wound check and cast placement. She will be on 24 hours of IV perioperative antibiotics and aspirin for deep vein thrombosis (DVT) prophylaxis. All her questions were answered, and she was in agreement with this plan.
== END 2019-03-05 15:10 | disposition home or self-care (01) ==
LOC: M SDC 09:52 → M MS5PR 17:30 → M SDC 03-05 15:10
PROVIDERS: ATTEND Orthopaedic Surgery
DX: S82.62XA Displaced fracture of lateral malleolus of left fibula, initial encounter for closed fracture (principal); W19.XXXA Unspecified fall, initial encounter; Y92.89 Other specified places as the place of occurrence of the external cause; Y93.9 Activity, unspecified; Y99.9 Unspecified external cause status; E11.40 Type 2 diabetes mellitus with diabetic neuropathy, unspecified; K52.839 Microscopic colitis, unspecified; E78.5 Hyperlipidemia, unspecified; F34.1 Dysthymic disorder; Z79.51 Long term (current) use of inhaled steroids; Z79.84 Long term (current) use of oral hypoglycemic drugs; K21.9 Gastro-esophageal reflux disease without esophagitis; J44.9 Chronic obstructive pulmonary disease, unspecified; Z87.891 Personal history of nicotine dependence; Z79.82 Long term (current) use of aspirin; Z79.899 Other long term (current) drug therapy; I10 Essential (primary) hypertension; K76.0 Fatty (change of) liver, not elsewhere classified; Z91.040 Latex allergy status; E83.42 Hypomagnesemia
CPT/HCPCS: 27769; 73610; 76000; 96365; 96366; 97161; 97530; C1713; J0690; J1100; J1885; J2250; J2405; J3010

== ENCOUNTER 2019-04-18 07:21 | Outpatient (RCR) | payer MEDICARE ==
[~2019-04-18 07:21] MED LIST changes: +ASPI81TA85 PO; +KEFL500C17 PO; +METF-791 PO; -METF500T4 PO; +OXYC-517 PO
== END 2019-04-22 | disposition home or self-care (01) ==
LOC: M PT 07:21
DX: S82.62XD Displaced fracture of lateral malleolus of left fibula, subsequent encounter for closed fracture with routine healing (principal)

== ENCOUNTER → 2019-05-08 | Outpatient (REF) | payer MEDICARE ==
[~2019-05-08] MED LIST changes: -SERT-155 PO; +SERT50TA29 PO
[2019-05-08 14:04] LABS: TOTAL PROTEIN 7.4 GM/DL (6.4-8.2)
[2019-05-08 14:13] LABS: VITAMIN B12 LEVEL 434 PG/ML (247-911)
[2019-05-08 14:14] LABS: FOLATE 10.8 NG/ML (>5.4)
[2019-05-09 12:32] LABS: ALBUMIN 4.11 GM/DL (3.29-5.55); ALBUMIN % 55.5 % (55.8-66.1); ALPHA-1-GLOBULIN % 4.8 % (2.9-4.9); ALPHA-1-GLOBULINS 0.36 GM/DL (0.17-0.41); ALPHA-2-GLOBULINS 0.74 GM/DL (0.42-0.99); BETA-1-GLOBULINS 0.63 GM/DL (0.28-0.60); BETA-1-GLOBULINS % 8.5 % (4.7-7.2); BETA-2-GLOBULINS % 6.8 % (3.2-6.5); GAMMA GLOBULIN % 14.4 % (11.1-18.8); GAMMA GLOBULINS 1.07 GM/DL (0.65-1.58)
[2019-05-12 08:06] LABS: CERULOPLASMIN 28.1 mg/dL (19.0-39.0); VITAMIN B1 LEVEL WHOLE BLOOD 142.6 nmol/L (66.5-200.0); VITAMIN B6,PYRIDOXAL PHOSPHATE 4.8 ug/L (2.0-32.8); VITAMIN E(ALPHA TOCOPHEROL) 16.5 mg/L (9.0-29.0); VITAMIN E(GAMMA TOCOPHEROL) 3.7 mg/L (0.5-4.9)
== END ==
LOC: M LABNEURO 11:22
PROVIDERS: ATTEND Psychiatry & Neurology Neurology
DX: G90.09 Other idiopathic peripheral autonomic neuropathy (principal); D51.9 Vitamin B12 deficiency anemia, unspecified; E51.9 Thiamine deficiency, unspecified

== ENCOUNTER 2019-05-16 08:33 | Outpatient (RCR) | payer MEDICARE | END 2019-05-23 | LOC: M PT 08:33 | DX: S82.62XD Displaced fracture of lateral malleolus of left fibula, subsequent encounter for closed fracture with routine healing (principal) ==

== ENCOUNTER 2019-06-19 08:41 | Outpatient (RCR) | payer MEDICARE | END 2019-06-22 | LOC: M PT 08:41 | DX: Z47.89 Encounter for other orthopedic aftercare (principal) ==

== ENCOUNTER 2019-07-15 07:47 | Outpatient (RCR) | payer MEDICARE | END 2019-07-23 | LOC: M PT 07:47 | DX: Z47.89 Encounter for other orthopedic aftercare (principal) ==

== ENCOUNTER → 2019-08-08 | Outpatient (CLI) | payer MEDICARE ==
[~2019-08-08] MED LIST changes: -FENO145T13 PO; +FENO145T7 PO; -MECL-68 PO; +MECL1TAB31 PO
[2019-08-14 00:06] LABS: ASPERGILLUS FLAVUS ABY Negative (Neg:<1:1); ASPERGILLUS FUMIGATUS ABY Negative (Neg:<1:1); ASPERGILLUS NIGER ABY Negative (Neg:<1:1); BLASTOMYCES ANTIBODY LEVEL Negative (Neg:<1:1); CHLAMYDIA PNEUMONIAE IgM < 1:10 (< 1:10); CHLAMYDIA PSITTACI IgM < 1:10 (< 1:10); CHLAMYDIA TRACHOMATIS IgM < 1:10 (< 1:10); CRYPTOCOCCUS ANTIGEN SER Negative (Negative); HISTOPLASMOSIS ANTIBODY Negative (Neg:<1:1); L. PNEUMOPHILA (1,3,4,5,6,8) <0.91 OD ratio (0.00-0.90)
== END ==
LOC: M PLALAB 08:45
PROVIDERS: ATTEND Internal Medicine Pulmonary Disease
DX: J44.9 Chronic obstructive pulmonary disease, unspecified (principal)

== ENCOUNTER → 2019-08-23 | Outpatient (RCR) | payer MEDICARE | LOC: M PT 08-16 10:26 | PROVIDERS: ATTEND Physician Assistant Medical | DX: M76.72 Peroneal tendinitis, left leg (principal); M72.2 Plantar fascial fibromatosis; M76.62 Achilles tendinitis, left leg ==

== ENCOUNTER 2019-09-13 08:45 | Outpatient (RCR) | payer MEDICARE | END 2019-09-21 | LOC: M PT 08:45 | PROVIDERS: ATTEND Physician Assistant Medical | DX: M76.62 Achilles tendinitis, left leg (principal); M72.2 Plantar fascial fibromatosis; M76.72 Peroneal tendinitis, left leg ==

== ENCOUNTER 2019-09-20 08:00 | Outpatient (RCR) | payer MEDICARE | END 2019-09-21 | disposition home or self-care (01) | LOC: M PT 08:00 | PROVIDERS: ATTEND Physician Assistant Medical | DX: Z47.89 Encounter for other orthopedic aftercare (principal); M25.812 Other specified joint disorders, left shoulder ==

== ENCOUNTER 2019-10-18 09:30 | Outpatient (RCR) | payer MEDICARE | END 2019-10-22 | LOC: M PT 09:30 | PROVIDERS: ATTEND Physician Assistant Medical | DX: Z47.89 Encounter for other orthopedic aftercare (principal); M25.812 Other specified joint disorders, left shoulder ==

== ENCOUNTER → 2019-11-18 | Outpatient (REF) | payer MEDICARE ==
[2019-11-18 15:55] LABS: CREATININE, URINE 67.2 MG/DL; MALB URINE SIEMENS < 5.0 MG/L; MAU/CREAT RATIO 7.4 MCG/MG (0.0-30.0)
== END ==
LOC: M LAB REF 14:55
PROVIDERS: ATTEND Nurse Practitioner Family
DX: E11.9 Type 2 diabetes mellitus without complications (principal)

== ENCOUNTER → 2020-01-21 | Outpatient (CLI) | payer MEDICARE ==
[~2020-01-21] MED LIST changes: -METF-791 PO; +METF-838 PO
--- NOTE | 2020-01-21 08:24 | REP ---
Clinical: Follow up abnormal lung findings. Comparison: 08/02/2019. Technique: Axial noncontrast images from the thoracic inlet to the upper abdomen with coronal and sagittal re-formations. Findings: Mild emphysematous changes along with mild bronchiectasis, minimal scattered scarring and chronic interstitial changes are noted. Previously identified patchy infiltrates have completely resolved. No obvious acute consolidation, significant nodule or mass lesion appreciated. No effusion. No pneumothorax. No significant adenopathy. Stable atherosclerotic changes to the thoracic aorta and coronary arteries again noted. Musculoskeletal structures demonstrate age-related changes without acute process. Impression: Chronic-appearing changes. Previously noted patchy infiltrates have resolved. No acute mediastinal or pleuroparenchymal process noted. Electronically Signed by Jacob Licea MD 01/21/2020 08:16 A
== END ==
LOC: M RAD 06:52
PROVIDERS: ATTEND Internal Medicine Pulmonary Disease
DX: R91.8 Other nonspecific abnormal finding of lung field (principal)

== ENCOUNTER → 2020-07-27 | Outpatient (CLI) | payer SELFPAY ==
[~2020-07-27] MED LIST changes: -ASPI81TA85 PO; +ASPI81TA86 PO; +CALC-211 PO; -CALCTAB7 PO; +CYAN500T14 PO; -CYAN500T8 PO
== END ==
LOC: M LABSMTC 10:54
PROVIDERS: ATTEND Pediatrics
DX: Z20.822 Contact with and (suspected) exposure to COVID-19 (principal)

== ENCOUNTER → 2020-08-14 | Outpatient (CLI) | payer MEDICARE ==
[~2020-08-14] MED LIST changes: +GABA-282 PO; -GABA-843 PO
[2020-08-14 11:59] LABS: BLOOD UREA NITROGEN 17 MG/DL (7-18); CREATININE FOR GFR 0.67 MG/DL (0.55-1.30); GLOMERULAR FILTRATION RATE > 60.0 (>39)
== END ==
LOC: M PLALAB 09:27
PROVIDERS: ATTEND Physician Assistant Surgical
DX: M19.012 Primary osteoarthritis, left shoulder (principal)

== ENCOUNTER → 2020-10-15 | Outpatient (CLI) | payer MEDICARE ==
[~2020-10-15] MED LIST changes: +ISOVUE-300 61% 50ML VIAL As Ordered ONE; +LIDOCAINE 1% MDV 20ML VIAL As Ordered ONE; +methylPREDNISolone SUSP 40MG/ML 1ML VIAL (DEPO MEDROL) As Ordered ONE
--- NOTE | 2020-10-15 18:54 | REP ---
INDICATION: LT SHOULDER RCT/RUPT W/ PAIN. COMPARISON: None TECHNIQUE: The procedure was performed by RAMA Barber, under the direct supervision of Dr. Garcia. The benefits and risks of the procedure were explained to the patient, and an informed consent was obtained. Directly prior to the start of the procedure, a formal time-out was completed in the procedure room. The left glenohumeral joint space was localized using fluoroscopic guidance. The skin was prepped and draped in a sterile fashion. Approximately 5 mL of 1% Lidocaine 10 mg/ml was used as a local anesthetic. Using fluoroscopic guidance, a #22 gauge spinal needle was inserted and advanced into the left glenohumeral joint space. Approximately 1 mL of Isovue 300 was injected to verify placement. Seven mL of a solution containing 5 mL 1% lidocaine 10 mg/ml and 2 mL Depo-Medrol 40 milligrams/milliliter was injected into the joint space. The needle was removed and hemostasis was achieved. FINDINGS: The patient tolerated the procedure well and there were no immediate complications. IMPRESSION: 1. Fluoroscopic guided right glenohumeral intra-articular pain injection. 0.1 minutes of fluoroscopy time was utilized for this procedure. Some fluoroscopic images are performed with last image hold technology. These images require no additional radiation. <Electronically signed by Emma Barrera > 10/15/20 1416 <Electronically signed by Darrell Garcia > 10/15/20 0098
== END ==
LOC: M RADPRO 10:58
PROVIDERS: ATTEND Physician Assistant Surgical
DX: M75.102 Unspecified rotator cuff tear or rupture of left shoulder, not specified as traumatic (principal)
CPT/HCPCS: 20610; 77002; J1030; Q9967

== ENCOUNTER → 2020-11-05 | Outpatient (REF) | payer MEDICARE ==
[~2020-11-05] MED LIST changes: -ISOVUE-300 61% 50ML VIAL As Ordered ONE; -LIDOCAINE 1% MDV 20ML VIAL As Ordered ONE; -methylPREDNISolone SUSP 40MG/ML 1ML VIAL (DEPO MEDROL) As Ordered ONE
[2020-11-05 16:05] LABS: CREATININE, URINE 54.1 MG/DL; MALB URINE SIEMENS 5.3 MG/L; MAU/CREAT RATIO 9.7 MCG/MG (0.0-30.0)
== END ==
LOC: M LAB REF 12:44
PROVIDERS: ATTEND Nurse Practitioner Family
DX: E11.9 Type 2 diabetes mellitus without complications (principal)

== ENCOUNTER → 2020-12-03 | Outpatient (REF) | payer MEDICARE | LOC: M LAB REF 17:06 | PROVIDERS: ATTEND Orthopaedic Surgery | DX: M72.0 Palmar fascial fibromatosis [Dupuytren] (principal) ==

== ENCOUNTER → 2021-01-08 | Outpatient (CLI) | payer MEDICARE | LOC: M LABSMTC 11:38 | PROVIDERS: ATTEND Anesthesiology | DX: Z01.812 Encounter for preprocedural laboratory examination (principal) ==

== ENCOUNTER 2021-01-13 10:26 | Day surgery (SDC) | payer MEDICARE ==
[~2021-01-13] VITALS: Ht 170.2 cm; Wt 82.6 kg
[~2021-01-13 10:26] MED LIST changes: +NS 1,000 ML IV ONE
[2021-01-13] MEDS ORDERED: propofoL 200 MG/20 ML VIAL As Ordered ONE ×2 (11:37→12:20)
[2021-01-13] MEDS ORDERED: LIDOCAINE 2% 100MG/5ML SDV (FOR ANES.) As Ordered ONE (11:37)
--- NOTE | 2021-01-13 12:13 | ROOR ---
Patient Name: Diana Deion Procedure Date: 01/13/2021 11:44 AM Date of : 1945 Age: 75 Room: [facility] Gender: Female Note Status: Finalized Procedure: Total Colonoscopy to Cecum + ileoscopy + Bx Indications: High risk colon cancer surveillance: Personal history of colonic polyps, Last colonoscopy: 2017, Incidental - Change in bowel habits Providers: Jl Guillory MD Referring MD: Marc Michel MD Requesting Provider: Medicines: Monitored Anesthesia Care Complications: No immediate complications. Procedure: Pre-Anesthesia Assessment: - The heart rate, respiratory rate, oxygen saturations, blood pressure, adequacy of pulmonary ventilation, and response to care were monitored throughout the procedure. The Colonoscope was introduced through the anus and advanced to the terminal ileum, with identification of the appendiceal orifice and IC valve. The colonoscopy was performed without difficulty. The patient tolerated the procedure well. The quality of the bowel preparation was excellent. Findings: The perianal and digital rectal examinations were normal. Non-bleeding internal hemorrhoids were found during retroflexion. The hemorrhoids were small and Grade I (internal hemorrhoids that do not prolapse). Multiple small and large-mouthed diverticula were found in the recto-sigmoid colon, sigmoid colon and descending colon. Biopsies for histology were taken with a cold forceps from the ascending colon, transverse colon, descending colon and rectosigmoid colon for evaluation of microscopic colitis. The terminal ileum appeared normal. The exam was otherwise without abnormality on direct and retroflexion views. Impression: - Non-bleeding internal hemorrhoids. - Diverticulosis in the recto-sigmoid colon, in the sigmoid colon and in the descending colon. Biopsied. - The examined portion of the ileum was normal. - The examination was otherwise normal on direct and retroflexion views. - The exam was otherwise normal to the cecum. Recommendation: - Patient has a contact number available for emergencies. The signs and symptoms of potential delayed complications were discussed with the patient. Return to normal activities tomorrow. Written discharge instructions were provided to the patient. - High fiber diet. - Discharge patient to home. - Continue present medications. - Await pathology results. - Telephone GI clinic for pathology results in 1 week. - Repeat colonoscopy is not recommended for surveillance. - Return to referring physician. - The findings and recommendations were discussed with the patient's family. Procedure Code(s): --- Professional --- 88121, Colonoscopy, flexible; with biopsy, single or multiple Diagnosis Code(s): --- Professional --- Z86.010, Personal history of colonic polyps K64.0, First degree hemorrhoids K57.30, Diverticulosis of large intestine without perforation or abscess without bleeding CPT copyright 2019 [employer]. All rights reserved. The codes documented in this report are preliminary and upon sr solutions consultant review may be revised to meet current compliance requirements. Jl Guillory MD Jl Guillory MD 01/13/2021 12:13:27 PM Electronically signed by Jl Guillory MD Number of Addenda: 0 Note Initiated On: 01/13/2021 11:44 AM Estimated Blood Loss: Estimated blood loss: none.
[2021-01-13 12:30] VITALS: BP 183/91
== END 2021-01-13 12:37 | disposition home or self-care (01) ==
LOC: M OPP 10:26
PROVIDERS: ATTEND Internal Medicine Gastroenterology
DX: Z12.11 Encounter for screening for malignant neoplasm of colon (principal); Z86.010 Personal history of colon polyps; K52.832 Lymphocytic colitis; K57.30 Diverticulosis of large intestine without perforation or abscess without bleeding; K64.0 First degree hemorrhoids; K52.839 Microscopic colitis, unspecified; Z79.84 Long term (current) use of oral hypoglycemic drugs; Z79.899 Other long term (current) drug therapy; Z87.891 Personal history of nicotine dependence; Z91.040 Latex allergy status

== ENCOUNTER → 2021-01-26 | Outpatient (CLI) | payer MEDICARE ==
[~2021-01-26] MED LIST changes: -NS 1,000 ML IV ONE
--- NOTE | 2021-01-26 09:16 | REP ---
INDICATION: PERSONAL HX OF NICOTINE DEPENDENCE COMPARISON: Multiple examinations dating through 07/13/2018 TECHNIQUE: Axial noncontrast images from the thoracic inlet to the upper abdomen using low-dose lung screening technique (LDCT). FINDINGS: Lung islas are well aerated and clear. No suspicious nodule or mass lesion. No consolidation, effusion, or pneumothorax. Tracheobronchial tree is patent. Mediastinum is grossly normal. IMPRESSION: Lung-RADS category 1. Management recommendations include annual low-dose CT surveillance. <Electronically signed by Jacob Licea > 01/26/21 0997
== END ==
LOC: M RAD 08:51
PROVIDERS: ATTEND Internal Medicine Pulmonary Disease
DX: Z87.891 Personal history of nicotine dependence (principal)

== ENCOUNTER → 2021-03-17 | Outpatient (CLI) | payer MEDICARE ==
--- NOTE | 2021-03-21 19:34 | SLEEPCENT ---
DATE: 03/17/2021 ORDERED BY: DIANA Rojo Nocturnal polysomnography was performed for evaluation of sleep physiology in this patient with a history of excessive somnolence and nonrestorative sleep. Eight hours and 28 minutes of data were reviewed. There were 232.5 minutes of sleep identified. Sleep latency was quite prolonged at 240.5 minutes. REM latency was also prolonged at 213 minutes. Sleep architecture showed fragmentation and poor progression. There were two brief REM cycles noted late in the study. Overall sleep efficiency was only 46.3%. The electrocardiogram showed a sinus rhythm with an average heart rate of 60 beats per minute. Rate ranged 50-75. EEG showed normal waveforms for wake and sleep. There were 102 respiratory events identified of 10 seconds in duration or greater for an apnea-hypopnea index of 26.3. The events were obstructive, not exclusive to sleep stage, more frequent but not exclusive in the supine posture. Arousals from respiratory events occurred 12.1 times per hour, and oxygen desaturations were seen into the 70s. There was some minor limb activity, and limb movement arousal index was 4.9. IMPRESSIONS: 1. Obstructive sleep apnea syndrome (G47.33). Apnea-hypopnea index 26.3. 2. 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 RECOMMENDATION: The patient should be encouraged to return to [facility] for [facility]. In the interim, alcohol and sedative avoidance should be practiced and caution exercised during the operation of motor vehicles.
== END ==
LOC: M SLEEP 20:00
PROVIDERS: ATTEND Nurse Practitioner Family
DX: G47.33 Obstructive sleep apnea (adult) (pediatric) (principal)

== ENCOUNTER → 2021-04-01 | Outpatient (CLI) | payer MEDICARE ==
--- NOTE | 2021-04-05 14:33 | SLEEPCENT ---
DATE: 04/01/2021 PROCEDURE: Nocturnal polysomnography and CPAP titration. ORDERED BY: DIANA Rojo. Nocturnal polysomnography was performed for the titration of pressure therapy in this patient with obstructive sleep apnea syndrome, apnea-hypopnea index 26.3. For testing, a ResMed Quattro full face mask of small size was used. 4 cm of water pressure were applied to the circuit, and the lights were extinguished. 7 hours and 34 minutes of data were reviewed. There were 290.5 minutes of sleep identified. Sleep latency was normal at 34 minutes. REM sleep was delayed at 211.5 minutes. Sleep architecture improved over the course of the study with optimal pressure therapy, and there were 2 REM cycles noted. Overall sleep efficiency 65.1%. The electrocardiogram showed a sinus rhythm with an average heart rate at 65 beats per minute. EEG showed normal waveforms for wake and sleep. Respiratory events were fully palliated with CPAP at a pressure of 16, and remaining measures of sleep physiology were normal. IMPRESSION: Obstructive sleep apnea syndrome (G47.33). RECOMMENDATION: Nightly use of pressure therapy, 16 cm of water. cc: WILLIAM AGUIAR MD
== END ==
LOC: M SLEEP 20:00
PROVIDERS: ATTEND Internal Medicine Pulmonary Disease
DX: G47.33 Obstructive sleep apnea (adult) (pediatric) (principal)

== ENCOUNTER 2021-04-16 13:35 | Emergency (ER) | payer MEDICARE ==
[~2021-04-16] VITALS: Ht 170.2 cm; Wt 80.3 kg
--- NOTE | 2021-04-16 16:46 | REP ---
INDICATION: trauma, left parietal. COMPARISON: None. TECHNIQUE: Helical scanning is acquired. 5 mm axial images were reformatted. Coronal MPR images were generated. FINDINGS: Bone window settings demonstrate an intact bony calvarium. There is no evidence of skull fracture or incidental bony calvarial lesion. The visualized paranasal sinuses appear clear. No intraorbital abnormality is seen. On soft tissue window setting images; the lateral, third, and fourth ventricles are normal in size and position. Garcia-white differentiation pattern is normal above and below the tentorium. There are is no evidence of intracranial hemorrhage. No mass, edema, infarction, or midline shift is seen. No extra-axial fluid collection is appreciated. There is minimal generalized volume loss. IMPRESSION: Negative noncontrast head CT. <Electronically signed by Juan Mitchell > 04/16/21 [id number]
--- NOTE | 2021-04-16 16:51 | REP ---
INDICATION: trauma. COMPARISON: None TECHNIQUE: AP pelvis two views left hip FINDINGS: AP pelvis shows mild bilateral rather symmetric appearing hip joint space narrowing with mild bilateral buttressing. There is no acute fracture, dislocation, or subluxation. Degenerative changes are seen involving the imaged portion of the spine. The two views of the left hip again shows hip joint space narrowing and buttressing. There is no acute fracture, dislocation, or subluxation. IMPRESSION: Chronic changes as described above. <Electronically signed by Jesus Herron > 04/16/21 [id number]
[2021-04-16 17:22] VITALS: BP 136/65
== END 2021-04-16 17:35 | disposition home or self-care (01) ==
LOC: M ED 13:35
DX: S70.02XA Contusion of left hip, initial encounter (principal); S00.91XA Abrasion of unspecified part of head, initial encounter; W10.8XXA Fall (on) (from) other stairs and steps, initial encounter; Y92.009 Unspecified place in unspecified non-institutional (private) residence as the place of occurrence of the external cause; Z91.040 Latex allergy status; Y93.9 Activity, unspecified; Y99.9 Unspecified external cause status; Z79.51 Long term (current) use of inhaled steroids; Z79.899 Other long term (current) drug therapy; Z79.84 Long term (current) use of oral hypoglycemic drugs

== ENCOUNTER → 2021-05-28 | Outpatient (CLI) | payer MEDICARE ==
--- NOTE | 2021-05-28 09:05 | REP ---
INDICATION: ABNORMAL FINDING OF LUNG FIELD. COMPARISON: Low-dose screening CT 01/26/2021, CT 01/21/2020, CTA 08/02/2019. TECHNIQUE: Noncontrast CT scan through the chest with coronal and sagittal reconstructions. FINDINGS: Lung islas the shows some mild cylindrical bronchiectatic change. There are few scattered bullae and some interstitial fibrotic changes in the posterior segment right upper lobe, best seen on image 35. Bilateral pleuroparenchymal scarring at the apices unchanged. I do not see recurrence of the patchy nodular interstitial infiltrates from the 08/02/2019 exam. No new nodules, calcified pleural plaques or parenchymal masses. No pleural effusion or pneumothorax. Heart is not enlarged. There are calcifications in coronary arteries, aortic arch and descending aorta without aneurysm. There is no pathologic sized mediastinal, hilar, axillary or supraclavicular adenopathy. Small amount of fluid in the superior pericardial recess as before. Bone windows show the medial clavicles, visualized portions of scapulae, humeral heads and ribs to be unremarkable. Chronic endplate degenerative changes in the thoracic spine. Sternum and manubrium intact. Upper abdomen shows no focal lesion in the visible portion of liver. The portion of gallbladder included show no calcified stone. Pancreas and spleen also seen only in part but grossly intact no adrenal lesions. Scarring bilaterally in the mid upper pole right kidney. Calcifications abdominal aorta. IMPRESSION: Some underlying COPD with a few scattered bulla and fibrosis in the right upper lobe, cylindrical bronchiectatic change but no acute infiltrate, parenchymal mass or other acute lung finding. There is chronic apical pleuroparenchymal scarring right greater than left. No effusion, acute infiltrate, new nodules or pleural plaques. Heart and mediastinum are without acute findings. Some degenerative changes in the spine without acute bony findings in the chest. Upper abdomen with the an old scar laterally in the mid upper pole of the right kidney but otherwise visualized structures intact. <Electronically signed by Logan Springer > 05/28/21 0901
== END ==
LOC: M RAD 07:15
PROVIDERS: ATTEND Internal Medicine Pulmonary Disease
DX: R91.8 Other nonspecific abnormal finding of lung field (principal)

== ENCOUNTER → 2022-05-19 | Outpatient (REF) | payer MEDICARE ==
[~2022-05-19] MED LIST changes: +FISH10005 PO; -FISH7.5C PO; +LOSA25TA13 PO; -LOSA25TA14 PO; +OMEP-173; -OMEP-218
[2022-05-19 19:36] LABS: CREATININE, URINE 32.7 MG/DL; MALB URINE SIEMENS < 5.0 MG/L; MAU/CREAT RATIO 15.2 MCG/MG (0.0-30.0)
== END ==
LOC: M LAB REF 16:55
PROVIDERS: ATTEND Nurse Practitioner Family
DX: E11.9 Type 2 diabetes mellitus without complications (principal)

== ENCOUNTER → 2022-06-13 | Outpatient (CLI) | payer MEDICARE | LOC: M RAD 11:00 | PROVIDERS: ATTEND Internal Medicine Pulmonary Disease | DX: R91.1 Solitary pulmonary nodule (principal) ==

== ENCOUNTER → 2022-08-22 | Outpatient (REF) | payer MEDICARE | LOC: M LAB REF 12:16 | PROVIDERS: ATTEND Family Medicine | DX: R35.0 Frequency of micturition (principal) ==

== ENCOUNTER → 2022-09-21 | Outpatient (CLI) | payer MEDICARE | LOC: M EKG 09:37 | PROVIDERS: ATTEND Orthopaedic Surgery | DX: Z01.818 Encounter for other preprocedural examination (principal); R00.1 Bradycardia, unspecified ==

== ENCOUNTER → 2022-09-21 | Outpatient (CLI) | payer MEDICARE ==
[2022-09-21 10:18] LABS: BASO % 0.4 % (0.0-1.0); EOS # 0.2 10^3/uL (0.0-0.5); EOS % 3.6 % (0.0-3.0); HEMATOCRIT 42.6 % (36.0-47.0); LYMPH # 1.3 10^3/uL (1.5-5.0); LYMPH % 25.6 % (24.0-44.0); MEAN CORPUSCULAR HEMOGLOBIN 26.5 pg (27.0-33.0); MEAN CORPUSCULAR HGB CONC 30.5 g/dl (32.0-36.5); MEAN CORPUSCULAR VOLUME 86.8 fl (80.0-96.0); MONO # 0.4 10^3/uL (0.0-0.8); MONO % 8.1 % (2.0-8.0); NEUTROPHILS # 3.1 10^3/uL (1.5-8.5); NEUTROPHILS % 61.9 % (36.0-66.0); PLATELET COUNT, AUTOMATED 198 10^3/uL (150-450); RED BLOOD COUNT 4.91 10^6/uL (4.00-5.40); WHITE BLOOD COUNT 5.1 10^3/uL (4.0-10.0)
[2022-09-21 10:23] LABS: INR 0.9; PARTIAL THROMBOPLASTIN TIME 24.1 SECONDS (24.8-34.2); PROTHROMBIN TIME 12.3 SECONDS (12.5-14.5)
[2022-09-21 10:51] LABS: ALBUMIN 3.8 G/DL (3.2-5.2); ALKALINE PHOSPHATASE 57 U/L (46-116); ALT/SGPT 22 U/L (7.0-40); AST/SGOT 30 U/L (<34); BILIRUBIN,TOTAL 0.5 MG/DL (0.3-1.2); BLOOD UREA NITROGEN 23 MG/DL (9-23); CALCIUM LEVEL 9.1 MG/DL (8.3-10.6); CARBON DIOXIDE LEVEL 28 MMOL/L (20-31); CHLORIDE LEVEL 105 MMOL/L (98-107); CREATININE FOR GFR 0.63 MG/DL (0.55-1.30); GLOMERULAR FILTRATION RATE > 60.0 (>39); GLUCOSE, FASTING 119 MG/DL (74-106); POTASSIUM SERUM 4.7 MMOL/L (3.5-5.1); SODIUM LEVEL 141 MMOL/L (136-145); TOTAL PROTEIN 7.1 G/DL (5.7-8.2)
[2022-09-21 10:53] LABS: TOTAL 25(OH) VITAMIN D 15.6 NG/ML (20.0-100.0)
[2022-09-21 16:08] LABS: APPEARANCE, URINE CLEAR (CLEAR); BACTERIA, URINE AUTO NEGATIVE (NEGATIVE); BILIRUBIN, URINE AUTO NEGATIVE (NEGATIVE); BLOOD, URINE BLOOD NEGATIVE (NEGATIVE); COLOR, URINE YELLOW (YELLOW); GLUCOSE, URINE (UA) AUTO 3+ mg/dL (NEGATIVE); KETONE, URINE AUTO NEGATIVE (NEGATIVE); LEUKOCYTE ESTERASE, URINE AUTO NEGATIVE (NEGATIVE); NITRITE, URINE AUTO NEGATIVE (NEGATIVE); PROTEIN, URINE AUTO NEGATIVE (NEGATIVE); RBC, URINE AUTO 1 /HPF (0-3); SPECIFIC GRAVITY URINE AUTO 1.022 (1.002-1.035); SQUAMOUS EPITHELIAL CELL UR AU 1 /HPF (0-6); UROBILINOGEN, URINE AUTO 0.2 mg/dL (0.0-2.0); WBC, URINE AUTO 0 /HPF (0-3)
== END ==
LOC: M PLAIMG 08:55
PROVIDERS: ATTEND Orthopaedic Surgery
DX: Z01.818 Encounter for other preprocedural examination (principal); M19.012 Primary osteoarthritis, left shoulder; R00.1 Bradycardia, unspecified; Z79.899 Other long term (current) drug therapy

== ENCOUNTER → 2022-10-01 | Outpatient (CLI) | payer MEDICARE ==
[2022-10-01 09:57] LABS: HEMOGLOBIN A1c 6.6 % (4.0-6.0)
== END ==
LOC: M LAB 08:36
PROVIDERS: ATTEND Orthopaedic Surgery
DX: Z01.818 Encounter for other preprocedural examination (principal); Z79.899 Other long term (current) drug therapy

== ENCOUNTER → 2022-11-28 | Outpatient (REF) | payer MEDICARE ==
[2022-11-28 09:10] LABS: HEMATOCRIT 39.9 % (36.0-47.0); HEMOGLOBIN 11.7 g/dl (12.0-15.5); MEAN CORPUSCULAR HEMOGLOBIN 26.5 pg (27.0-33.0); MEAN CORPUSCULAR HGB CONC 29.3 g/dl (32.0-36.5); MEAN CORPUSCULAR VOLUME 90.3 fl (80.0-96.0); PLATELET COUNT, AUTOMATED 307 10^3/uL (150-450); RED BLOOD COUNT 4.42 10^6/uL (4.00-5.40); WHITE BLOOD COUNT 9.2 10^3/uL (4.0-10.0)
[2022-11-28 09:46] LABS: HEMOGLOBIN A1c 5.6 % (4.0-6.0)
[2022-11-28 10:29] LABS: ALBUMIN 3.3 G/DL (3.2-5.2); ALKALINE PHOSPHATASE 99 U/L (46-116); ALT/SGPT 29 U/L (7.0-40); AST/SGOT 32 U/L (<34); BILIRUBIN,TOTAL 0.6 MG/DL (0.3-1.2); BLOOD UREA NITROGEN 37 MG/DL (9-23); CALCIUM LEVEL 9.8 MG/DL (8.3-10.6); CARBON DIOXIDE LEVEL 23 MMOL/L (20-31); CHLORIDE LEVEL 110 MMOL/L (98-107); CREATININE FOR GFR 0.32 MG/DL (0.55-1.30); GLOMERULAR FILTRATION RATE > 60.0 (>39); GLUCOSE, FASTING 170 MG/DL (74-106); SODIUM LEVEL 146 MMOL/L (136-145); TOTAL PROTEIN 7.3 G/DL (5.7-8.2)
== END ==
LOC: SKLAB5 09:19
PROVIDERS: ATTEND Internal Medicine
DX: I10 Essential (primary) hypertension (principal); J44.9 Chronic obstructive pulmonary disease, unspecified; Z79.899 Other long term (current) drug therapy

== ENCOUNTER → 2022-12-09 | Outpatient (REF) | payer MEDICARE | LOC: SKLAB5 19:50 | PROVIDERS: ATTEND Internal Medicine | DX: M25.512 Pain in left shoulder (principal); Z96.612 Presence of left artificial shoulder joint ==

== ENCOUNTER → 2023-02-21 | Outpatient (CLI) | payer MEDICARE ==
[~2023-02-21] MED LIST changes: +BARIUM SULFATE 700 MG TABLET (E-Z-DISK) As Ordered ONE; +E-Z-PAQUE 96% w/w SUSP 176GM BTL As Ordered ONE; +VARIBAR NECTAR 40% w/v 240ML SUSP BTL As Ordered ONE; +VARIBAR PUDDING 40% w/v 230ML TUBE As Ordered ONE
== END ==
LOC: M RAD 11:09
PROVIDERS: ATTEND Internal Medicine
DX: R13.10 Dysphagia, unspecified (principal); Z71.3 Dietary counseling and surveillance

== ENCOUNTER → 2023-02-21 | Outpatient (REF) | payer MEDICARE ==
[~2023-02-21] MED LIST changes: -BARIUM SULFATE 700 MG TABLET (E-Z-DISK) As Ordered ONE; -E-Z-PAQUE 96% w/w SUSP 176GM BTL As Ordered ONE; -VARIBAR NECTAR 40% w/v 240ML SUSP BTL As Ordered ONE; -VARIBAR PUDDING 40% w/v 230ML TUBE As Ordered ONE
== END ==
LOC: SKLAB5 11:00
PROVIDERS: ATTEND Nurse Practitioner Family
DX: M25.552 Pain in left hip (principal)